=== PATIENT | female | born 1995 | race Two or more races ===

== ENCOUNTER 2024-11-28 20:01 | Emergency (ER) | payer MEDICAID, SELFPAY ==
[2024-11-28 20:12] VITALS: BP 124/86; PULSE 76; RESP 20; TEMP 37.1; O2SAT 96
--- NOTE | 2024-11-28 20:19 | EDNOTE_ITS ---
ED Headache RME/HPI General Chief Complaint: Headache Stated Complaint: MIGRAINE H/A Time Seen by Provider: 11/28/24 20:04 Source: patient Arrival date/time: 11/28/24 20:01 29-year-old female past medical history of migraines presents emergency department complaining of headache that involves the back of her head and forehead as she describes as pressure headache with nausea. Patient reports took her migraine medication Nurtec about 2 hours ago with no relief. Patient denies any fever, chills, vision changes, dizziness, ear pain, sore throat, or any other associated symptom. Mode of arrival: ambulatory Limitations: no limitations Related Data Home Medications ?Medication ?Instructions ?Recorded ?Confirmed rimegepant 75 mg disintegrating 75 mg PO Q OTHER DAY P RN Migraine 03/08/24 03/08/24 tablet (Nurtec ODT) Headache Previous Rx's ?Medication ?Instructions ?Recorded cetirizine 10 mg tablet 10 mg PO QDAY PRN allergy sy mptoms 03/08/24 #14 tabs acetaminophen 500 mg capsule 500 mg PO Q6H PRN pain #3 0 caps 11/28/24 ondansetron 4 mg disintegrating 4 mg PO Q8H PRN nausea and 11/28/24 tablet vomiting #7 tabs Allergies Allergy/AdvReac Type Severity Reaction Status Date / Time iodine Allergy Severe Rash Verified 03/08/24 17:23 Review of Systems Review of Systems Systems Reviewed: All systems reviewed, normal except as documented Constitutional Constitutional: Reports system reviewed and no additional complaints, except as documented, Denies body ache(s), Denies chills, Denies fever(s) and Reports headache(s) Eyes Eyes: Reports system reviewed and no additional complaints, except as documented and Denies change in vision ENT Ears, Nose, Mouth, and Throat: Reports system reviewed and no additional complaints, except as documented, Denies disequilibrium, Denies dizziness, Reports headache(s), Denies sore throat and Denies vertigo Cardiovascular Cardiovascular: Reports system reviewed and no additional complaints, except as documented, Denies chest pain and Denies dyspnea Respiratory Respiratory: Reports system reviewed and no additional complaints, except as documented, Denies chest congestion, Denies cough and Denies dyspnea Gastrointestinal Gastrointestinal: Reports system reviewed and no additional complaints, except as documented, Denies abdominal pain, Reports nausea and Denies vomiting Musculoskeletal Musculoskeletal: Reports system reviewed and no additional complaints, except as documented, Denies abnormal gait and Denies arthralgias Integumentary/Breasts Skin/Breast: Reports system reviewed and no additional complaints, except as documented, Denies erythema, Denies rash and Denies wounds Neurologic Neurologic: Reports system reviewed and no additional complaints, except as documented, Denies abnormal gait, Denies disequilibrium, Denies dizziness, Reports headache(s) and Denies vertigo Past Medical History Past Medical History NEUROLOGIC: Positive Migraine; Negative Neurological Disorders CARDIAC: Negative Cardiac Disorders or Congestive Heart Failure RESPIRATORY: Negative Chronic Obstructive Pulmonary Disease (COPD) or Asthma GASTROINTESTINAL: Negative Gastrointestinal Disorders or Hepatitis GENITOURINARY: Negative Genitourinary Disorders or Renal Disease MUSCULOSKELETAL: Negative Musculoskeletal Disorders or Carpal Tunnel Syndrome ENT: Negative Cataracts ENDOCRINE: Negative Endocrine Disorders, Diabetes Mellitus Type 1 or Diabetes Mellitus Type 2 HEMATOLOGIC: Positive Blood Disorders and Anemia; Negative Leukemia, Hemophilia, Thalassemia, Sickle Cell Disease or Clotting Problems OTHER HISTORY: Positive Hospitalization; Negative Autoimmune Disease, Down Syndrome, Developmental Delay, Shingles, Falls, Blood Transfusions, Blood Transfusion Reaction, Anesthesia Reactions, Organ Transplant, Chemotherapy, Radiation Therapy, Hyperbaric Therapy, MRSA, VRSA, Vancomycin-Resistant Enterococci, Human Immunodeficiency Virus (HIV), Chicken Pox, Measles, Mumps, Rubella ([place] Measles), Pertussis, Clostridium Difficile or Cancer Family History FAMILY HISTORY: Positive Family Cancer; Negative Family Psychiatric Problems, Family Respiratory Disorders, Family Cardiac Disorders, Family Gastrointestinal Problems, Family Surgery or Family Anesthesia Reaction Surgical History SURGICAL: Positive Abdominal Surgery; Negative Cardiac Surgery, Endocrine Surgery, Thyroidectomy, Ear Surgery, Tympanostomy Tube, Eye Surgery, Nose Surgery, Oral Surgery, Tonsillectomy, Adenoidectomy, Cochlear Implant, Corneal Transplant, Throat Surgery, Tracheostomy, Gastric Bypass Surgery, Gastrostomy, Bowel Surgery, Nephrectomy, Transurethral Resection, Joint Replacement, Amputation, Open Reduction Internal Fixation, Arthroscopy, Neurologic Surgery, Brain Shunt, Mastectomy, Lumpectomy, Hysterectomy, Tubal Ligation, Section or Organ Transplant Social History SMOKING STATUS: Never smoker SECOND HAND EXPOSURE: No ED Exam General Limitations: Present no limitations General appearance: Present alert and in no apparent distress Head Head exam: Present atraumatic Eye Eye exam: Present normal appearance, PERRL and EOMI ENT ENT exam: Present normal exam, normal oropharynx and mucous membranes moist Neck Neck exam: Present normal inspection, full ROM and trachea midline Chest Chest inspection: Present normal inspection and symmetric chest wall rise Respiratory Respiratory exam: Present normal lung sounds bilaterally Cardiovascular Cardiovascular exam: Present regular rate, normal rhythm and normal heart sounds Abdominal Exam Abdominal exam: Present soft and normal bowel sounds; Absent tenderness, rebound, Koroma's sign or tenderness at McBurney's Point Extremities Exam Extremities exam: Present normal inspection and full ROM Back Exam Back exam: Present normal inspection and full ROM Neurological Exam Neurological exam: Present alert, oriented X3 and CN II-XII intact Psychiatric Psychiatric exam: Present normal affect and normal mood Skin Skin exam: Present warm, dry, intact and normal color Course Quality Measures none Orders Category Date Time Status DiphenhydrAMINE [Benadryl] Med 11/28/24 20:17 Discontinued 25 mg PO X1 ONE HYDROcodone*/APAP 5/325 [[place] 5/325] Med 11/28/24 20:17 Discontinued 1 tab PO X1 ONE Metoclopramide Inj [Reglan Inj] Med 11/28/24 20:17 Discontinued 10 mg IM X1 ONE Vital Signs Vital signs: Vital Signs Temperature 98.7 F 11/28/24 20:12 Pulse Rate 76 11/28/24 20:12 Respiratory Rate 20 11/28/24 20:12 Blood Pressure 124/86 H 11/28/24 20:12 Pulse Oximetry (%) 96 11/28/24 20:12 Oxygen Delivery Method Room Air 11/28/24 20:12 96% RA within normal limits Headache MDM Narrative MDM Narrative:: 29-year-old female past medical history of migraines presents emergency department complaining of headache that involves the back of her head and forehead as she describes as pressure headache with nausea. Patient reports took her migraine medication Nurtec about 2 hours ago with no relief. Patient denies any fever, chills, vision changes, dizziness, ear pain, sore throat, or any other associated symptom. Cranial nerve exam 2 through 12 within normal limits. Patient appears nontoxic and is hemodynamically stable. Patient GCS of 15 with steady gait. Patient given pain medication and reported complete resolution of symptoms. Patient stable for discharge to go to follow-up with primary care provider and return Ivette to emergency department for any worsening symptoms or as needed. Patient data External records reviewed:: [facility] previous records Clinical information provided by:: patient Social determinants that could affect healthcare access:: none Patient has the following chronic illnesses:: See chart How is presenting disease/condition affected by chronic disease/condition?: exacerbated by Evaluation data The following diagnostics were reviewed and interpreted by me:: other (specify) (N/A) Lab and/or radiology exams considered but not ordered:: N/A Interpretation Summary: n/a Medications / Prescriptions Medications or Prescriptions considered but not ordered:: ordered Medication administrations:: Medication Administration History Discontinued Medications Hydrocodone Bitart/Acetaminophen (Hydrocodone/Apap 5/325 Tablet) 1 tab PO X1 ONE Stop: 11/28/24 20:18 Last Admin: 11/28/24 21:12 Dose: 1 tab Documented By: MARYSE Diphenhydramine HCl (Diphenhydramine 25 Mg Capsule) 25 mg PO X1 ONE Stop: 11/28/24 20:18 Last Admin: 11/28/24 21:12 Dose: 25 mg Documented By: MARYSE Metoclopramide HCl (Metoclopramide Inj 5 Mg/Ml Vial 2 Ml) 10 mg IM X1 ONE; Protocol Stop: 11/28/24 20:18 Last Admin: 11/28/24 21:13 Dose: 10 mg Documented By: MARYSE Given Consultations Consultation(s) initiated? (list below): No Diagnosis Differential diagnosis headache: migraine, tension headache, subarachnoid hemorrhage, headache, meningitis, sinusitis and postconcussion syndrome Most likely diagnosis given after review of the tests above:: Headache Admission Indicated Admission indicated?: not indicated Admission Request Was there a request for admission?: No Disposition Plan Disposition Plan: Discharge Discharge Attestation Discharge Attestation: The patient and all family members were given an opportunity to ask questions and understood the discharge instructions. Discharge instructions specifically effects, indications for sooner follow up or return to the emergency department, and the expected course of current diagnosis. Patient condition: Stable Discharge Plan Plan Patient Disposition: HOME (Self Care) Disposition Comment: Stable Prescriptions/Referrals Prescriptions/Med Rec: New ondansetron 4 mg tablet,disintegrating 4 mg PO Q8H PRN (Reason: nausea and vomiting) Qty: 7 0RF acetaminophen 500 mg capsule 500 mg PO Q6H PRN (Reason: pain) Qty: 30 0RF No Action Nurtec ODT 75 mg Tablet,Disintegrating 75 mg PO Q OTHER DAY PRN (Reason: Migraine Headache) cetirizine 10 mg tablet 10 mg PO QDAY PRN (Reason: allergy symptoms) Qty: 14 0RF Referrals: No Primary/Family,Physician [Primary Care Provider] - In 1 week Problem List Clinical Impression: Headache Patient/Caregiver Discharge Instructions Discharge Activity: activity as tolerated Education Materials: Self-Care for Headaches Additional Instructions: Drink plenty of fluids and get plenty of rest. Take Tylenol as needed for pain. Take Zofran as needed for any episodes of nausea. Close follow-up with primary care provider in 2 to 3 days. Return to emergency department for any worsening symptoms or as needed. Print Language: [place] Stand Alone Forms: Mar Award Info., Patient Portal Info Letter PA/BACKUP ADMINISTRATIVE COORDINATOR Supervising Physician PA/BACKUP ADMINISTRATIVE COORDINATOR Supervising Physician: Dr. Kingsley
[2024-11-28] MEDS: DiphenhydrAMINE 25 MG CAPSULE PO (21:12)
[2024-11-28] MEDS: HYDROcodone/APAP 5/325 TABLET 1 TAB PO (21:12)
[2024-11-28] MEDS: METOCLOPRAMIDE INJ 5 MG/ML VIAL 2 ML 10 MG IM (21:13)
== END 2024-11-28 22:14 | disposition home or self-care (01) ==
PROVIDERS: Emergency Provider Emergency Medicine
DX: R51.9 Headache, unspecified (principal)
CPT/HCPCS: 96372; 99283; J2765; A9270

== ENCOUNTER 2025-06-18 20:55 | Emergency (ER) | payer MEDICAID, SELFPAY ==
[2025-06-18 20:56] VITALS: BMI 31.2
[2025-06-18 21:05] VITALS: BP 134/92; PULSE 66; RESP 18; TEMP 36.3; O2SAT 95
--- NOTE | 2025-06-18 21:11 | XR_ITS ---
Examination: CT brain head without contrast. 2-D sagittal coronal reconstructions Date and time of exam:June 18, 2025 at 2145 hrs. Comparison: March 08, 2024 Indications: Headaches beginning 6 days ago CTDI: vol (mGy):49.2 DLP: (mGycm):911 Technique: Multiple CT axial sections of the brain have been obtained, 5 mm slice thickness. Contrast has not been administered. 2-D sagittal, coronal reconstructions have been obtained Low dose protocols were performed. One or more of the following dose reduction techniques were used; automated exposure control, adjustment of the mA and/or KV according to patient size, use of iterative reconstruction technique. Findings: No significant ventricular enlargement. Intra-axial or extra-axial hemorrhage density is not seen. No mass effect or midline shift Basal cisterns are not remarkable. Fourth ventricle is midline. Cranial vault intact. 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
--- NOTE | 2025-06-18 21:12 | PD.EDHA ---
ED Headache RME/HPI General Chief Complaint: Headache Stated Complaint: MIGRAINE HEADACHE Time Seen by Provider: 06/18/25 21:11 Arrival date/time: 06/18/25 20:55 RME / HPI RME / HPI Narrative: See [facility] for Dr. Shaikh's HPI Documentation. Related Data Home Medications ?Medication ?Instructions ?Recorded ?Confirmed rimegepant 75 mg disintegrating 75 mg PO Q OTHER DAY PRN Migraine 03/08/24 03/08/24 tablet (Nurtec ODT) Headache Previous Rx's ?Medication ?Instructions ?Recorded cetirizine 10 mg tablet 10 mg PO QDAY PRN allergy symptoms 03/08/24 #14 tabs acetaminophen 500 mg capsule 500 mg PO Q6H PRN pain #30 caps 11/28/24 ondansetron 4 mg disintegrating 4 mg PO Q8H PRN nausea and 11/28/24 tablet vomiting #7 tabs acetaminophen 300 mg-codeine 30 mg 2 tab PO Q8H PRN pain #20 tabs 06/18/25 tablet ondansetron 4 mg disintegrating 4 mg PO TID PRN nausea and 06/18/25 tablet vomiting 30 days #10 tabs Allergies Allergy/AdvReac Type Severity Reaction Status Date / Time iodine Allergy Severe Rash Verified 06/18/25 20:55 Review of Systems Review of Systems Systems Reviewed: All systems reviewed, normal except as documented Past Medical History Past Medical History NEUROLOGIC: Positive Migraine HEMATOLOGIC: Positive Anemia OTHER HISTORY: Positive Hospitalization Family History FAMILY HISTORY: Positive Family Cancer Surgical History SURGICAL: Positive Abdominal Surgery ED Exam Narrative Physical exam: See [facility] for Dr. Shaikh's Physical Exam Documentation. Course Quality Measures none Orders Category Date Time Status CT head/brain wo con Stat Exams 06/18/25 21:11 Completed ACETAMINOPHEN w/COD 300-30 [Tylenol w/Cod #3] Med 06/18/25 21:11 Discontinued 2 tab PO X1 ONE Ibuprofen Tab [Motrin Tab] Med 06/18/25 21:11 Discontinued 600 mg PO X1 ONE Ondansetron Odt [Zofran Odt] Med 06/18/25 21:11 Discontinued 4 mg PO X1 ONE Vital Signs Vital signs: Vital Signs Temperature 97.4 F 06/18/25 21:05 Pulse Rate 66 06/18/25 21:05 Respiratory Rate 18 06/18/25 21:05 Blood Pressure 134/92 H 06/18/25 21:05 Pulse Oximetry (%) 95 06/18/25 21:05 Oxygen Delivery Method Room Air 06/18/25 21:05 Headache MDM Narrative MDM Narrative:: This section includes all my notes and documentations, including HPI, PE, and ED course. Jin Shaikh MD HPI: 30 y/o female with Hx of Anemia and Migraines presents with approximately 1 week of severe throbbing left-sided headache, nausea, vomiting, photophobia, and phonophobia. No other complaints. ROS: All negative except as documented in HPI. Physical Exam: General: Alert and oriented. No acute distress. Eyes: Conjunctivae and lids clear. EOMI. PERRL. ENT: No nasal congestion. Pharynx normal. Tympanic membrane normal bilaterally. Neck: Supple. Heart: RRR. Lungs: No respiratory distress. Good air movement. No rhonchi, wheezing, rales. Abdomen: Soft and nontender. Skin: Warm and dry. Neuro: Alert and oriented X 3. Cranial Nerves II-XII grossly intact. No peripheral motor deficits. I reviewed all diagnostic test results: My review of the Head/Brain CT report is NAD. At this point, diagnoses include: Migraine headache Treatment here included: Tylenol with Codeine #3 Motrin 600 mg Zofran 4 mg Significant improvement noted. Recommended outpatient care. Based on my best medical judgment, made decision no further evaluation or treatment indicated at this time. Patient understands and agrees to the discharge instructions customized and printed, see below. Discharge Instructions from Dr. Shaikh: --Fortunately, there is no life-threatening condition.? Such as stroke or brain tumor. --When you get home, try to get some rest in the dark.? This can be the best treatment for migraine headache. --Try to eat regular nutritious meals, maintain good hydration, decrease stress, and get regular physical exercise.? Increase oral fluid and maintain clear urine.? If dark or yellow, increase oral fluid. --Take Zofran for nausea.? With migraines, controlling your nausea as soon as possible can help. --Take Nurtec as needed.? Tylenol with codeine for severe pain. --See a private doctor of your choice on 06/20/2025 for recheck and further care. Ask to consider a referral to see a neurologist and MRI brain imaging. --Seek immediate medical care with worsening or with any concerns.? Jin Shaikh MD Patient data External records reviewed:: [facility] previous records (Reviewed prior ED records from 11/28/24. Patient was seen for Headache.) Clinical information provided by:: patient Social determinants that could affect healthcare access:: none Patient has the following chronic illnesses:: Anemia, Migraine How is presenting disease/condition affected by chronic disease/condition?: exacerbated by Evaluation data The following diagnostics were reviewed and interpreted by me:: radiology exam(s) Lab and/or radiology exams considered but not ordered:: None Interpretation Summary: I reviewed all diagnostic test results: My review of the Head/Brain CT report is NAD. Medications / Prescriptions Medications or Prescriptions considered but not ordered:: None Medication administrations:: Medication Administration History Discontinued Medications Acetaminophen/Codeine Phosphate (Acetaminophen W/Cod 300-30 Tablet) 2 tab PO X1 ONE Stop: 06/18/25 21:12 Last Admin: 06/18/25 22:03 Dose: 2 tab Documented By: OA Ibuprofen (Ibuprofen Tab 600 Mg Tablet) 600 mg PO X1 ONE Stop: 06/18/25 21:12 Last Admin: 06/18/25 22:05 Dose: 600 mg Documented By: OA Ondansetron HCl (Ondansetron Odt 4 Mg Tabrap) 4 mg PO X1 ONE; Protocol Stop: 06/18/25 21:12 Last Admin: 06/18/25 21:57 Dose: 4 mg Documented By: CVL Tylenol with Codeine #3 Motrin 600 mg Zofran 4 mg Consultations Consultation(s) initiated? (list below): No Diagnosis Differential diagnosis headache: migraine, tension headache, subarachnoid hemorrhage, headache, meningitis and sinusitis Most likely diagnosis given after review of the tests above:: Migraine headache Admission Indicated Admission indicated?: not indicated Explain why admission is indicated or not indicated:: With significant improvement and no condition needing emergent intervention, there was no indication for admission. Admission Request Was there a request for admission?: No Disposition Plan Disposition Plan: Discharge Discharge Attestation Discharge Attestation: The patient and all family members were given an opportunity to ask questions and understood the discharge instructions. Discharge instructions specifically effects, indications for sooner follow up or return to the emergency department, and the expected course of current diagnosis. Patient condition: Stable Discharge Plan Plan Patient Disposition: HOME (Self Care) Prescriptions/Referrals Prescriptions/Med Rec: New acetaminophen-codeine 300-30 mg tablet 2 tab PO Q8H MDD 6 PRN (Reason: pain) Qty: 20 0RF ondansetron 4 mg tablet,disintegrating 4 mg PO TID PRN (Reason: nausea and vomiting) 30 Days Qty: 10 0RF No Action Nurtec ODT 75 mg Tablet,Disintegrating 75 mg PO Q OTHER DAY PRN (Reason: Migraine Headache) cetirizine 10 mg tablet 10 mg PO QDAY PRN (Reason: allergy symptoms) Qty: 14 0RF ondansetron 4 mg tablet,disintegrating 4 mg PO Q8H PRN (Reason: nausea and vomiting) Qty: 7 0RF acetaminophen 500 mg capsule 500 mg PO Q6H PRN (Reason: pain) Qty: 30 0RF Referrals: Antonia Douglas PA-C [Primary Care Provider, Emergency Medicine] - In 1 week Problem List Clinical Impression: Migraine headache Patient/Caregiver Discharge Instructions Discharge Activity: activity as tolerated Education Materials: ED Headache, Migraine, Classic Additional Instructions: Discharge Instructions from Dr. Shaikh: --Fortunately, there is no life-threatening condition.? Such as stroke or brain tumor. --When you get home, try to get some rest in the dark.? This can be the best treatment for migraine headache. --Try to eat regular nutritious meals, maintain good hydration, decrease stress, and get regular physical exercise.? Increase oral fluid and maintain clear urine.? If dark or yellow, increase oral fluid. --Take Zofran for nausea.? With migraines, controlling your nausea as soon as possible can help. --Take Nurtec as needed.? Tylenol with codeine for severe pain. --See a private doctor of your choice on 06/20/2025 for recheck and further care. Ask to consider a referral to see a neurologist and MRI brain imaging. --Seek immediate medical care with worsening or with any concerns.? Print Language: [place] Island[place] Stand Alone Forms: Mar Award Info., Patient Portal Info Letter
[2025-06-18] MEDS: ONDANSETRON ODT 4 MG TABRAP PO (21:57)
[2025-06-18] MEDS: ACETAMINOPHEN w/COD 300-30 TABLET 2 TAB PO (22:03)
[2025-06-18] MEDS: IBUPROFEN TAB 600 MG TABLET PO (22:05)
[2025-06-18 23:00] VITALS: RESP 14
== END 2025-06-18 23:00 | disposition home or self-care (01) ==
PROVIDERS: Emergency Provider Emergency Medicine; PCP Physician Assistant
DX: G43.909 Migraine, unspecified, not intractable, without status migrainosus (principal); D64.9 Anemia, unspecified
CPT/HCPCS: 70450; 99283; Q0162; A9270